=== PATIENT | male | born 1950 ===

== ENCOUNTER 2019-10-31 07:15 | Day surgery (SDC) | payer OTHER ==
[~2019-10-31 07:15] MED LIST: ASPIR 8181 MG PO; DULOXETINE HCL40 MG PO; MONTELUKAST SODI4 M1 PO; PROTONIX20 MG PO; REVLIMID5 MG PO
== END 2019-10-31 13:45 | disposition home or self-care (01) ==
LOC: CIR.AMB 07:15 → ADM 07:30 → CIR.AMB 07:30
DX: M65.342 Trigger finger, left ring finger (principal)